=== PATIENT | female | born 1965 | race African-American/Black ===

== ENCOUNTER 2024-10-14 10:48 | Emergency (ER) | payer OTHER, SELFPAY ==
--- NOTE | ~2024-10-14 | CT_ITS ---
CLINICAL HISTORY: FB in esophagus CT soft tissue neck without contrast Comparison: None Findings: The visualized intracranial contents are unremarkable. No prevertebral fluid. Epiglottis is within normal limits. Pharyngeal mucosal space and parapharyngeal fat are normal. Salivary glands are unremarkable. No sialoliths. Prior thyroidectomy. Unremarkable thyroid fossa. There are mild emphysematous changes at the lung apices. No acute fracture or dislocation. IMPRESSION: There is no radiopaque foreign body within the visualized esophagus. This document has been electronically signed by: Meghann Berry MD on 10/14/2024 13:09:22
--- NOTE | 2024-10-14 10:57 | ED.GENADULT ---
HPI - General Adult General Chief complaint: Skin/Abscess/Foreign Body Stated complaint: Object stuck in esophagus Time Seen by Provider: 10/14/24 18:30 Source: patient Mode of arrival: ambulatory Limitations: no limitations History of Present Illness ED Provider: HPI narrative: Patient has been feeling pain in his throat for last 3 days saying that after eating pork sandwich noticed pain in the throat feel foreign body sensations went to urgent care x-ray and noticed radiopaque shadows which in fact are from the thyroid surgery in the 2016 CT scan was done here which is negative for any foreign body in esophagus or pharynx patient claimed that she not able to swallow solids or liquids but able to hold secretions down Related Data Allergies Allergy/AdvReac Type Severity Reaction Status Date / Time acetaminophen Allergy Severe hallucinati Verified 10/14/24 11:00 [From DARVOCET-N] ons cephalexin [From KEFLEX] Allergy Severe RASH Verified 10/14/24 11:00 latex [LATEX] Allergy Severe ANAPHYLAXIS Verified 10/14/24 11:00 meperidine [From DEMEROL] Allergy Severe hallucinati Verified 10/14/24 11:00 ons Penicillins [PCN] Allergy Severe RASH Verified 10/14/24 11:00 propoxyphene Allergy Severe hallucinati Verified 10/14/24 11:00 [From DARVOCET-N] ons avocado [AVOCADO] Allergy Unknown ANAPHYLAXIS Verified 10/14/24 11:00 banana [BANANA] Allergy Unknown ANAPHYLAXIS Verified 10/14/24 11:00 chestnut [CHESTNUTS*] Allergy Unknown anaphylaxis Verified 10/14/24 11:00 hazelnut [HAZELNUT] Allergy Unknown anaphylaxis Verified 10/14/24 11:00 kiwi [KIWI] Allergy Unknown anaphylaxis Verified 10/14/24 11:00 coconut Allergy Anaphylaxis Verified 10/14/24 11:00 walnut Allergy Anaphylaxis Verified 10/14/24 11:00 Review of Systems Review of Systems: Yes all other systems are reviewed and are negative PMFSH Social History Social History Advance Directives: No Advance Directives Information Provided: No Physical Exam ED Vital Signs: Vital Signs - 24 hr 10/14/24 10:58 10/14/24 19:34 10/14/24 22:29 Temperature 98.8 F 98.1 F 98.2 F Pulse Rate 65 69 73 Respiratory Rate 18 16 16 Blood Pressure 135/77 147/86 H 117/64 Pulse Oximetry 100 99 98 Oxygen Delivery Method Room Air Room Air Room Air BMI result Body Mass Index 33.0 Appearance: Alert. Oriented X3. No acute distress. Very anxious Eyes: PERRLA, No Nystagmus ENT: Pharynx normal. Oral Mucosa moist no stridor Neck: Normal inspection. Neck supple. CVS: Normal heart rate and rhythm. Pulses normal. Respiratory: No respiratory distress. Equal air entry bilateral, no wheezing/rales/rhonchi Abdomen: Soft and nontender. Bowel sounds are present, no mass palpable, no CVA tenderness Skin: Skin warm and dry. Normal skin color. Normal skin turgor. Extremities: No lower extremity edema. No calf tenderness Neuro: Oriented X 3. No motor deficit. Course Course Course Narrative: This is a Rapid Medical Examination (RME) performed by Nico Garcia PA-C in triage. Full HPI, ROS, assessment and treatment plan per primary provider in the Main ED. 59 yo female presents to the ER from Urgent Care for evaluation of FB in the esophagus. Reports pain with swallowing since Sunday after she ate a pulled pork sandwich at a restaurant in [place]. She denies any vomiting or inability to swallow but has pain with eating and drinking. Reports pain is in the right side of the throat. 9/10 pain. Arrives with CD of xray done at urgent care that shows a calcified foreign body. Plan: upload imaging, GI consult - TT Dr. Roa at 11:03 AM, awaiting response Reevaluation(s) Reevaluation #1: patient has hives on/off for a month. supposed to be on prednisone but cannot swallow it. few hives noted on back. IM medrol ordered. CT scan done - no esophageal FB, will need to discuss radiopaque findings with them ... Time: 15:13 Medications Administered Discontinued Medications Generic Name Dose Route Start Last Admin Trade Name Freq PRN Reason Stop Dose Admin Lidocaine HCl 15 ml 10/14/24 18:38 10/14/24 19:07 Lidocaine Hcl Viscous 2 % 15 Ml Solution MUCOUS MEM 10/14/24 18:39 15 ml ONCE ONE Administration Lorazepam 2 mg 10/14/24 18:45 10/14/24 19:08 Lorazepam 2 Mg/Ml Vial IM 10/14/24 18:46 2 mg ONCE ONE Administration Methylprednisolone Sodium Succinate 60 mg 10/14/24 15:12 10/14/24 15:32 Methylprednisolone Sod Succ 125 Mg/2 Ml Vial IM 10/14/24 15:13 60 mg ONCE ONE Administration Medical Decision Making Medical Decision Making [facility] Narrative: Patient with foreign body sensation in oropharynx CT scan negative for any foreign body patient felt better after Ativan and lidocaine viscous able to eat and tingling in the ER patient advised to follow up with ENT and college counselor Lab Data Labs: Lab Results 10/14/24 Range/Units 20:43 Influenza Type A (PCR) NEGATIVE (Negative) Influenza Type B (PCR) NEGATIVE (Negative) RSV RNA Qual (PCR) NEGATIVE (Negative) SARS-CoV-2 RNA (RT-PCR) NEGATIVE (Negative) S. pyogenes GrpA MARTIN Negative (Negative) Discharge Plan Discharge Clinical Impression: Feeling of foreign body in throat Patient Disposition: Home, Self-Care Instructions: Foreign Body in Pharynx (ED) Additional Instructions: Will do not see any foreign body in the CT scan of your neck Follow with ENT/GI if he is still continuing to feel foreign body sensation for further management Drink plenty of fluids Referrals: Bar Perez MD [Physician] - Maciel Roldan [Physician] - 3 days Print Language: Indonesian
[2024-10-14 10:58] VITALS: BP 135/77; PULSE 65; RESP 18; TEMP 37.1; O2SAT 100; BMI 33.0
[2024-10-14] MEDS: methylPREDNISolone Sod Succ 125 MG/2 ML VIAL 60 MG IM (15:32)
--- OUTSIDE RECORDS SUMMARY | 2024-10-14 18:35 | XMS_ITS | Encounter Summary ---
Author Organization [facility], Address [address] [place] [address] Phone Care Team Providers Care Awning Installer Name Role Phone Amber Duran NP Primary Care Provider [phone] Reason for Visit * Reason Onset Date Comments Med Refill 02/09/2021 Encounter Details Date Type Department Care Team (Late st Contact Info) Description 02/09/2021 [facility]ill [facility] [address] [place] [address] Didier Montoya [address] [place] [address] Social History Tobacco Use Types Packs/Day Years Used Date Smoking Tobacco: Former Cigarettes Q uit: 09/24/2000 Comments:Smoking History Inf o:Unknown Alcohol Use Standard Drinks/Week Comments No 0 (1 standard drink = 0.6 oz pur e alcohol) Comments Unknown Sex and Gender Information Value Date Recorded Sex Assigned at Not on file Legal Sex Female 4:11 PM EDT Gender Identity Not on file Sexual Orientation Not on file documented as of this encounter Plan of Treatment Not on file documented as of this encounter Visit Diagnoses Not on filedocumented in this encounter Care Teams Awning Installer Relationship Specialty Start Date End Date Amber Duran NP [address] [place], [place] PCP - General Nurse Practitioner 02/06/20 documented as of this encounter
--- OUTSIDE RECORDS SUMMARY | 2024-10-14 18:35 | XMS_ITS | Clinical Summary ---
Author Organization [facility] Address [address] [place] [address] Care Team Providers Care Aircraft Engine Technician Name Role Phone Unavailable Primary Care Provider Unavailabl e Social History Tobacco Use Types Packs/Day Years Used Date Smoking Tobacco: Never Assessed Sex and Gender Information Value Date Recorded Sex Assigned at Not on file Gender Identity Not on file Sexual Orientation Not on file Plan of Treatment Health Maintenance Due Date Last Done Comments Breast Cancer Screening 1965 Cervical Cancer Screening: P ap Smear 01/26/1985 Zoster Vaccines (1 of 2) 01/26/2014 DTaP,Tdap,and Td Vaccines (2 - Td or Tdap) 03/10/2020 03/10/2010 Colorectal Cancer Screening: Colonoscopy 10/23/2023 Depression Screening 10/23/2023 HIV Screening 10/23/2023 Hepatitis C Screening 10/23/2023 Social Influencers of Health Screening 10/23/2023 COVID-19 Vaccine ( - 2023-2 5 season) 2024 Influenza Vaccine (#1) 2024 9, 08/24/2008 RSV Immunization Patients 60 + Years Old (1 - 1-dose 75+ series) 01/26/2039 HIB Vaccines Aged Out No longer eligi ble based on patient's age to complete this topic HPV Vaccines Aged Out No longer eligi ble based on patient's age to complete this topic Hepatitis A Vaccines Aged Out No long er eligible based on patient's age to complete this topic Hepatitis B Vaccines Aged Out No long er eligible based on patient's age to complete this topic IPV Vaccines Aged Out No longer eligi ble based on patient's age to complete this topic MMR Vaccines Aged Out No longer eligi ble based on patient's age to complete this topic Meningococcal ACWY Vaccine Aged Out N o longer eligible based on patient's age to complete this topic Pneumococcal Vaccine: Pediatrics (0 to 5 Years) and At-Risk Patients (6 to 64 Years) Aged Out No longer eligible b ased on patient's age to complete this topic RSV Immunization Patients Under 20 months Aged Out No longer eligible b ased on patient's age to complete this topic Varicella Vaccines Aged Out No longer eligible based on patient's age to complete this topic
--- OUTSIDE RECORDS SUMMARY | 2024-10-14 18:35 | XMS_ITS | Encounter Summary ---
Author Organization [facility], Address [address] [place] [address] Phone Care Team Providers Care Coremaker Machine Name Role Phone Amber Duran NP Primary Care Provider [phone] Reason for Visit * Reason Comments Med Refill Encounter Details Date Type Department Care Team (Late st Contact Info) Description 02/08/2023 Refill [facility] [address] [place] [address] Jc Benson MD [address] [place] [address] Social History Tobacco Use Types Packs/Day Years [...] on filedocumented in this encounter Care Teams Coremaker Machine Relationship Specialty Start Date End Date Amber Duran NP [address] [place] [address] PCP - General Nurse Practitioner 02/06/20 documented as of this encounter
--- OUTSIDE RECORDS SUMMARY | 2024-10-14 18:35 | XMS_ITS | Clinical Summary ---
Author Organization [facility], Address [address] [place] [address] [place] [address] Phone Care Team Providers Care Peripheral Equipment Operator Name Role Phone Duran, Amber TREVOR Primary Care Provider [phone] Allergies Active Allergy Reactions Criticality Noted Date Comments Propoxyphene 02/20/2020 Meperidine 02/20/2020 Cephalexin 02/20/2020 Latex 02/20/2020 Other 02/20/2020 BANANAS, AVOCADO, WALNUT, CHESTNUT, HAZELNUTS, KIWI, COCONUT Penicillins 02/20/2020 Hydrocodone-Acetaminophen 02/20/2020 Medications atorvastatin (LIPITOR) 20 MG tablet Take 20 mg by mouth 1 (one) time each day Active buPROPion SR (WELLBUTRIN SR) 150 MG 12 hr tablet Take 150 mg by mouth 1 (one) time each day Active buPROPion XL (WELLBUTRIN XL) 300 MG 24 hr tablet Take 300 mg by mouth 1 (one) time each day Active doxepin (SINEquan) 75 MG capsule Take 75 mg by mouth every night Active fluticasone (FLONASE) 50 MCG/ACT nasal spray Administer 1 spray into each nostril 1 (one) time each day Active meloxicam (MOBIC) 15 MG tablet Take 15 mg by mouth 1 (one) time each day Active sertraline (ZOLOFT) 100 MG tablet Take 200 mg by mouth 1 (one) time each day Active levothyroxine (SYNTHROID, LEVOTHROID) 75 MCG tablet Take TWO tablets six days of the week and ONE tablet the remaining day Active triamterene-hyd roCHLOROthiazid e (MAXZIDE-25) 37.5-25 MG per tablet Take 1 tablet by mouth 1 (one) time each day Active cetirizine (ZyrTEC) 10 MG tablet Take 20 mg by mouth 1 (one) time each day Active hydroCHLOROthia zide 25 MG tablet Take 1 tablet (25 mg total) by mouth 1 (one) time each day 90 tablet 3 2 Active Active Problems Problem Noted Date Diagnosed Date Stage 3a chronic kidney disease 05/02/2021 Renal calculus 02/23/2020 Pure hypercholesterolemia Impaired fasting glycemia Hypothyroidism Hyperlipidemia Cyst of kidney Immunizations Name Administration Dates Next Due Influenza Split High Dose Preservative Free IM 1 10/25/2007 Tdap 03/10/2010 Family History Medical History Relation Comments Cancer Maternal Grandmother uterine Diabetes Mother Diabetes type II Mother Hypertension Mother Anemia Mother's Brother Breast cancer Mother's Sister Relation Status Comments Father Unknown Maternal Grandmother Mother Alive Mother's Brother Mother's Sister Social History Tobacco Use Types Packs/Day Years [...] Last Done Comments Breast Cancer Screening 1965 Pneumococcal Vaccine: Pediat rics (0 to 5 Years) and At-Risk Patients (6 to 64 Years) (1 of 2 - PCV) 01/26/1970 Colorectal Cancer Screening: Annual FOBT 01/26/2013 Colorectal Cancer Screening: Colonoscopy 01/26/2013 Colorectal Cancer Screening: Sigmoidoscopy 01/26/2013 Influenza Vaccine (#1) 2024 08/24/2008 Hepatitis B Vaccine Aged Out No longe r eligible based on patient's age to complete this topic Insurance MEDICAID [place] Care Teams Peripheral Equipment Operator Relationship Specialty Start Date End Date Amber Duran NP [address] [place] [address] PCP - General Nurse Practitioner 02/06/20
[2024-10-14] MEDS: Lidocaine HCl Viscous 2 % 15 ML SOLUTION MUCOUS MEM (19:07)
[2024-10-14] MEDS: LORazepam 2 MG/ML VIAL IM (19:08)
[2024-10-14 19:34] VITALS: BP 147/86; PULSE 69; RESP 16; TEMP 36.7; O2SAT 99
[2024-10-14 20:58] LABS: IDNOW Serial# 58CA691E; Strep A Nucleic Acid Negative (Negative)
[2024-10-14 21:27] LABS: Influenza A PCR NEGATIVE (Negative); Influenza B PCR NEGATIVE (Negative); Resp Syncy Virus RNA Qual PCR NEGATIVE (Negative); SARS COV2 PCR INHOUSE NEGATIVE (Negative)
[2024-10-14 22:29] VITALS: BP 117/64; PULSE 73; RESP 16; TEMP 36.8; O2SAT 98
== END 2024-10-14 23:08 | disposition home or self-care (01) ==
PROVIDERS: Emergency Provider Internal Medicine; PCP Nurse Practitioner
DX: R09.89 Other specified symptoms and signs involving the circulatory and respiratory systems (principal); R07.0 Pain in throat; M54.2 Cervicalgia; L50.0 Allergic urticaria; Z03.818 Encounter for observation for suspected exposure to other biological agents ruled out
CPT/HCPCS: 0241U; 70490; 87651; 96372; 99283; 99284; J2060; J2919

== ENCOUNTER → 2024-10-14 11:38 | Outpatient (BNV) | payer OTHER, SELFPAY | PROVIDERS: Visit Provider Radiology Diagnostic Radiology | DX: R07.0 Pain in throat (principal) | CPT/HCPCS: 70490 ==

== ENCOUNTER → 2025-02-02 09:15 | Outpatient (BNV) | payer OTHER, SELFPAY | PROVIDERS: Visit Provider Internal Medicine | DX: Z12.31 Encounter for screening mammogram for malignant neoplasm of breast (principal) | CPT/HCPCS: 77063; 77067 ==

== ENCOUNTER 2025-02-02 09:21 | Outpatient (REF) | payer OTHER, SELFPAY ==
--- OUTSIDE RECORDS SUMMARY | 2025-02-02 09:27 | XMS_ITS | Encounter Summary ---
Author Organization [facility], Address [address] [place] [address] Phone Care Team Providers Care Relief Man Name Role Phone Amber Duran NP Primary Care Provider Reason for Visit * Reason Comments Med Refill Encounter Details Date Type Department Care Team (Late st Contact Info) Description 02/08/2023 Refill [facility] [address] [place] [address] Jc Benson MD Social History Tobacco Use Types Packs/Day Years [...] on filedocumented in this encounter Care Teams Relief Man Relationship Specialty Start Date End Date Amber Duran NP [address] [place] [address] PCP - General Nurse Practitioner 02/06/20 documented as of this encounter
--- OUTSIDE RECORDS SUMMARY | 2025-02-02 09:27 | XMS_ITS | Clinical Summary ---
Author Organization [facility], Address [address] [place] [address] [place] [address] Phone Care Team Providers Care Network Operations Technician Name Role Phone Duran, Amber TREVOR Primary Care Provider [phone] Allergies Active Allergy Reactions Criticality Noted Date [...] glycemia Hypothyroidism Hyperlipidemia Cyst of kidney Immunizations Immunization Administration Dates Next Due Influenza Split High [...] Comments Breast Cancer Screening 1965 Pneumococcal Vaccine: 50+ Ye ars (1 of 2 - PCV) 01/26/1983 Colorectal Cancer Screening: Annual FOBT 01/26/2013 Colorectal Cancer Screening: Colonoscopy 01/26/2013 Colorectal Cancer Screening: Sigmoidoscopy 01/26/2013 Influenza Vaccine (Season Ended) 2025 08/24/20 08 Hepatitis B Vaccine Aged Out No longe r eligible based on patient's age to complete this topic Insurance Medicaid [place] Care Teams Network Operations Technician Relationship Specialty Start Date End Date Amber Duran NP [address] [place] [address] PCP - General Nurse Practitioner 02/06/20
--- OUTSIDE RECORDS SUMMARY | 2025-02-02 09:27 | XMS_ITS | Encounter Summary ---
Author Organization [facility], Address [address] [place] [address] Phone Care Team Providers Care Lining Folder Name Role Phone Amber Duran NP Primary Care Provider [phone] Reason for Visit * Reason Onset Date Comments Med Refill 02/09/2021 Encounter Details Date Type Department Care Team (Late st Contact Info) Description 02/09/2021 Refill [facility] [address] [place] [address] Didier Montoya [address] [place] [address] Social History Tobacco Use Types [...] on filedocumented in this encounter Care Teams Lining Folder Relationship Specialty Start Date End Date Amber Duran NP [address], [place] PCP - General Nurse Practitioner 02/06/20 documented as of this encounter
== END 2025-02-02 09:22 | disposition home or self-care (01) ==
LOC: HO.MAMMO 09:21
PROVIDERS: Visit Provider Nurse Practitioner
DX: Z12.31 Encounter for screening mammogram for malignant neoplasm of breast (principal)
CPT/HCPCS: 77063; 77067

== ENCOUNTER 2025-07-21 07:52 | Emergency (ER) | payer OTHER, SELFPAY ==
[2025-07-21 07:54] VITALS: BP 179/102; PULSE 68; RESP 18; TEMP 37.1; O2SAT 99; BMI 29.7
[2025-07-21 08:05] VITALS: BP 167/85; PULSE 67; RESP 19; O2SAT 100
--- NOTE | 2025-07-21 08:11 | ED_ITS ---
HPI - Allergic Reaction General Chief complaint: Allergic Reaction Stated complaint: allergic reaction Time Seen by Provider: 07/21/25 07:57 Source: patient Mode of arrival: ambulatory Limitations: no limitations History of Present Illness HPI narrative: This is 60 years old presented to the emergency department with swelling of the tongue. She states she woke up this morning with a swollen tongue. She has self administer epinephrine 20 minutes prior to the arrival to the emergency department. She states that she has multiple allergy and last night she use a different marijuana preparation. Denies any other systemic symptoms such as fever vomiting MD complaint: other (tongue swelling) Onset (ago): hour(s) (2) Exposure: other Known history of allergy to: possible new cannabinoid preparation Symptoms: other (tongue swelling) Severity: mild Treatment prior to arrival: epinephrine Previous Allergic Reaction History: other (Multiple allergens) Related Data Previous Rx's ?Medication ?Instructions ?Recorded prednisone 20 mg tablet 60 mg (3 x 20 mg) PO DAILY # 12 tabs 07/21/25 Allergies Allergy/AdvReac Type Severity Reaction Status Date / Time acetaminophen (From Allergy Severe hallucinati Verified 07/21/25 07:58 DARVOCET-N) ons cephalexin (From KEFLEX) Allergy Severe RASH Verified 07/21/25 07:58 latex (LATEX) Allergy Severe ANAPHYLAXIS Verified 07/21/25 07:58 meperidine (From DEMEROL) Allergy Severe hallucinati Verified 07/21/25 07:58 ons Penicillins (PCN) Allergy Severe RASH Verified 07/21/25 07:58 propoxyphene (From Allergy Severe hallucinati Verified 07/21/25 07:58 DARVOCET-N) ons avocado (AVOCADO) Allergy Unknown ANAPHYLAXIS Verified 07/21/25 07:58 banana (BANANA) Allergy Unknown ANAPHYLAXIS Verified 07/21/25 07:58 chestnut (CHESTNUTS*) Allergy Unknown anaphylaxis Verified 07/21/25 07:58 hazelnut (HAZELNUT) Allergy Unknown anaphylaxis Verified 07/21/25 07:58 kiwi (KIWI) Allergy Unknown anaphylaxis Verified 10/14/24 11:00 coconut Allergy Anaphylaxis Verified 10/14/24 11:00 walnut Allergy Anaphylaxis Verified 10/14/24 11:00 Review of Systems 2 Constitutional: Constitutional: Reports no additional constitutional complaints ENT: Reports as per HPI Cardiovascular: Cardiovascular: Reports no additional cardiovascular complaints Respiratory: Respiratory: Reports no additional respiratory complaints [facility] Past Medical History Attestation statement: The following information was validated with the patient. [facility] Narrative: Hypertension Social History Social History Smoked in Last 30 Days: No Use of substances other than those prescribed or required for medical reasons: Yes Substance Use Type: Marijuana Advance Directives: No Advance Directives Information Provided: No Patient : No Physical Exam ED Vital Signs: Vital Signs - 24 hr 07/21/25 07:54 07/21/25 08:05 07/21/25 08:50 Temperature 98.8 F Pulse Rate 68 67 58 Respiratory Rate 18 19 18 Blood Pressure 179/102 H 167/85 H Pulse Oximetry 99 100 100 Oxygen Delivery Method Room Air Room Air Room Air 07/21/25 09:21 07/21/25 11:48 Temperature 0 F L Pulse Rate 64 64 Respiratory Rate 14 14 Blood Pressure 140/72 H 140/72 H Pulse Oximetry 98 98 Oxygen Delivery Method Room Air Room Air BMI result Body Mass Index 29.7 Const General: cooperative Nutritional Appearance: average body habitus Orientation/consciousness: patient oriented x3 HENMT Head: Yes normal to inspection Ears: hearing grossly normal bilaterally General nose exam: Normal external nose present Face and sinus: Yes normal facial exam Mouth: Normal oral and palatal mucosa present Teeth and gingiva: other (Swelling of the tongue noted) Neck Neck: Yes normal visual inspection Chest Chest palpation & inspection: normal inspection of the chest Resp Effort & Inspection: normal respiratory effort Auscultation: clear to auscultation bilaterally Cardio Jugular venous distension: no JVD Rate: regular rate GI Inspection: Yes normal to inspection Palpation (GI): Soft to palpation, not firm and nontender Auscultation: normal bowel sounds Skin General skin exam: no rashes or lesions noted and elasticity normal Lesions: no lesions Rashes: no rashes Neuro General: patient oriented x3 Cranial nerves: Yes CN's II-XII intact bilaterally Course Reevaluation(s) Reevaluation #1: Patient was re-examined several times including now much better tongue is down anticipate discharge Time: 11:41 Medications Administered Discontinued Medications Generic Name Dose Route Start Last Admin Trade Name Freq PRN Reason Stop Dose Admin Dexamethasone Sodium Phosphate 10 mg 07/21/25 08:07 07/21/25 08:13 Dexamethasone Sod Phosphate 10 Mg/Ml Vial IVPUSH 07/21/25 08:08 10 mg ONCE ONE Administration Diazepam 2.5 mg 07/21/25 10:15 07/21/25 10:29 Diazepam 10 Mg/2 Ml Cartridge IVPUSH 07/21/25 10:16 2.5 mg STAT STA Administration Diphenhydramine HCl 25 mg 07/21/25 08:08 07/21/25 08:13 Diphenhydramine Hcl 50 Mg/Ml Vial IVPUSH 07/21/25 08:09 25 mg ONCE ONE Administration Diphenhydramine HCl 25 mg 07/21/25 09:17 07/21/25 09:20 Diphenhydramine Hcl 50 Mg/Ml Vial IVPUSH 07/21/25 09:18 25 mg ONCE ONE Administration Famotidine 20 mg 07/21/25 08:08 07/21/25 08:13 Famotidine/Pf 20 Mg/2 Ml Vial IVPUSH 07/21/25 08:09 20 mg ONCE ONE Administration Sodium Chloride 1,000 mls @ 999 mls/hr 07/21/25 08:15 07/21/25 09:23 Ns IVCONT 07/21/25 09:15 Infused .Q1H1M SCOTT Infusion Medical Decision Making Medical Decision Making [facility] Narrative: Patient is here with swelling of the tongue we will administer IV Decadron/Benadryl/Pepcid unclear picture is more consistent with the angioedema 11:42 on re-examination she is doing much better at this point I think she can be discharged home Differential Diagnosis Differential Diagnoses: The differential diagnosis associated with the presentation includes Angioedema/allergic reaction Admission/Observation Consideration of admission/observation: Escalation of care including admission/observation considered Lab Data [facility] Lab Attestation statement: I reviewed the patient's lab results. 07/21/25 08:16 07/21/25 08:16 Labs: Lab Results 07/21/25 Range/Units 08:16 WBC 5.9 (4.8-10.8) X10*3/uL RBC 5.44 (4.20-5.50) X10*6/uL Hgb 14.7 (12.0-16.0) g/dl Hct 45.7 (37.0-47.0) % MCV 84.0 (80.0-98.0) fL MCH 27.0 (27.0-33.0) pg MCHC 32.2 (31.0-35.0) g/dl RDW 14.1 (11.0-16.0) % Plt Count 297 (160-400) X10*3/uL MPV 9.7 (9.4-12.3) fL Immature Gran % (Auto) 0.2 (0.0-0.4) % Neut % (Auto) 31.8 L (45-73) % Lymph % (Auto) 56.0 H (20-40) % [place] % (Auto) 8.2 (2-11) % Eos % (Auto) 3.1 (0-4) % Baso % (Auto) 0.7 (0-2) % Lymph # (Auto) 3.3 (1.2-4.9) X10*3/uL [place] # (Auto) 0.5 (0.1-1.2) X10*3/uL Eos # (Auto) 0.2 (0.0-0.4) X10*3/uL Baso # (Auto) 0.0 (0.0-0.2) X10*3/uL Abs Immat Gran (auto) 0.01 (0.00-0.03) X10*3/uL Absolute Neuts (auto) 1.9 L (2.0-8.3) x10*3/uL Absolute Nucleated RBC 0.000 (0.0-0.012) X10*3/uL Nucleated RBC % (auto) 0.0 (0.0-0.2) /100WBC Sodium 141 (135-145) mmol/L Potassium 3.6 (3.3-5.1) mmol/L Chloride 107 (96-108) mmol/L Carbon Dioxide 25 (22-29) mmol/L Anion Gap 13 (12-20) BUN 14 (9-16) mg/dL Creatinine 1.29 (0.5-1.4) mg/dL Estim Creat Clear Calc 46.4 Estimated GFR 42 Random Glucose 89 (60-115) mg/dL Calcium 9.3 (8.4-10.2) mg/dL Total Bilirubin 0.4 (0.0-1.0) mg/dL AST 23 (5-31) U/L ALT 15 (0-31) U/L Alkaline Phosphatase 73 (39-117) U/L Total Protein 7.0 (6.5-8.0) g/dL Albumin 4.2 (3.5-5.0) g/dL Critical Care Time Critical Care Time Critical Care Time: Yes Total Critical Care Time: 60 Attestation: Angioedema with treated with the IV steroid IV Benadryl IV Pepcid re-examined several times Discharge Plan Discharge Clinical Impression: Angioedema Patient Disposition: Home, Self-Care Instructions: Angioedema (ED) Additional Instructions: Please follow-up with your primary care physician return to the emergency room if you worse any concern Prescriptions: New prednisone 20 mg tablet 60 mg PO DAILY Qty: 12 0RF Referrals: PhysicianJason [Primary Care Provider, Medical] - 07/23/25 Interventions: ED Discharge Assessment Last Done: 07/21/25 11:48 Discharge Date/Time: 07/21/25 11:57 Print Language: Welsh
[2025-07-21 08:19] LABS: MANUAL DIFF FLAG NO
[2025-07-21 08:24] LABS: Hematocrit 45.7 % (37.0-47.0); Hemoglobin 14.7 g/dl (12.0-16.0); Imm Gran Abs Auto 0.01 X10*3/uL (0.00-0.03); Imm Gran Pct Auto 0.2 % (0.0-0.4); Lymphocytes Absolute Auto 3.3 X10*3/uL (1.2-4.9); Mean Corpuscular HGB Conc 32.2 g/dl (31.0-35.0); Mean Corpuscular Hemoglobin 27.0 pg (27.0-33.0); Mean Corpuscular Volume 84.0 fL (80.0-98.0); NRBC Abs Auto 0.000 X10*3/uL (0.0-0.012); NRBC Pct Auto 0.0 /100WBC (0.0-0.2); Platelet Count 297 X10*3/uL (160-400); Red Blood Count 5.44 X10*6/uL (4.20-5.50); White Blood Count 5.9 X10*3/uL (4.8-10.8)
[2025-07-21 08:33] LABS: Alanine Aminotransferase 15 U/L (0-31); Albumin Level 4.2 g/dL (3.5-5.0); Alkaline Phosphatase 73 U/L (39-117); Anion Gap 13 (12-20); Aspartate Amino Transferase 23 U/L (5-31); Blood Urea Nitrogen 14 mg/dL (9-16); Calcium 9.3 mg/dL (8.4-10.2); Carbon Dioxide 25 mmol/L (22-29); Chloride 107 mmol/L (96-108); Creatinine Clr Calc Pharmacy 46.4; Estimated Glomerular Filt Rate 42; Potassium 3.6 mmol/L (3.3-5.1); Sodium 141 mmol/L (135-145); Total Protein 7.0 g/dL (6.5-8.0)
[2025-07-21 08:50] VITALS: PULSE 58; RESP 18; O2SAT 100
--- OUTSIDE RECORDS SUMMARY | 2025-07-21 09:07 | XMS_ITS | Encounter Summary ---
Author Organization [facility] Address [address] [place] [address] Phone Care Team Providers Care Salt Cutter Name Role Phone Rachel Andrews DO Primary Care Provider [phone] Maylin Santamaria NP Primary Care Provider Encounter Details Date Type Department Care Team (Late st Contact Info) Description 11/30/2021 Procedure Pass [facility], [address] [address] Social History Tobacco Use Types Packs/Day Years Used Date Smoking Tobacco: Former Cigarettes Q uit: 2013 Smokeless Tobacco: Never Alcohol Use Standard Drinks/Week Comments No 0 (1 standard drink = 0.6 oz pur e alcohol) Comments No Sex and Gender Information Value Date Recorded Sex Assigned at Not on file Legal Sex Female 6:58 PM EST Gender Identity Not on file Sexual Orientation Not on file documented as of this encounter Plan of Treatment Not on file documented as of this encounter Visit Diagnoses Not on filedocumented in this encounter Care Teams Salt Cutter Relationship Specialty Start Date End Date Rachel Andrews DO [address] [place] [address] [place] [phone] PCP - General Family Medicine 05/09/23 12/16/24 Maylin Santamaria, TREVOR [address] [place] [phone] [email or web address] PCP - General Nurse Practitioner 12/17/24 documented as of this encounter Additional Source Comments The information contained in this document represents components of the legal health record. It is not the complete legal health record.[facility]
--- OUTSIDE RECORDS SUMMARY | 2025-07-21 09:07 | XMS_ITS | Encounter Summary ---
Author Organization [facility] Address [address] [place] [address] Phone Care Team Providers Care Vehicle Window Tinter Name Role Phone Rachel Andrews DO Primary Care Provider Maylin Santamaria DENTAL LABORATORY TECHNOLOGY TEACHER Primary Care Provider Encounter Details Date Type Department Care Team (Late st Contact Info) Description 05/09/2023 Procedure Pass [facility], [facility] Scan - [address] [address] Social History Tobacco Use Types Packs/Day Years Used Date Smoking Tobacco: Former Cigarettes Q uit: 2013 Smokeless Tobacco: Never Alcohol Use Standard Drinks/Week Comments No 0 (1 standard drink = 0.6 oz pur e alcohol) Education Answer Date Recorded Are you interested in more education? Not on jigar e 02/01/2023 Are you concerned about learning? Not on file 02/01/2023 No 02/01/2023 No 02/01/2023 Digital Access Answer Date Recorded No 02/18/2023 No 02/18/2023 Reliable internet access at home? Not on file 02/18/2023 Device with a working camera? Not on file Intimate Partner Violence Answer Date R ecorded Are you denied basic needs s uch as food, clothing, or medical care? No 05/09/2023 In the past 12 months have y ou been in a relationship with a person who hurts, threatens, or tries to control you? No 05/09/2023 Are you denied basic needs s uch as food, clothing, or medical care? No 05/09/2023 In the past 12 months have y ou been in a relationship with a person who hurts, threatens, or tries to control you? No 05/09/2023 Comments No Sex and Gender Information Value Date Recorded Sex Assigned at Not on file Legal Sex Female 6:58 PM EST Gender Identity Not on file Sexual Orientation Not on file documented as of this encounter Plan of Treatment Not on file documented as of this encounter Visit Diagnoses Not on filedocumented in this encounter Care Teams Vehicle Window Tinter Relationship Specialty Start Date End Date Rachel Andrews DO [address] [place] [address] [place] [phone] PCP - General Family Medicine 05/09/23 12/16/24 Maylin Santamaria NP [address] [place] [phone] [email or web address] PCP - General Nurse Practitioner 12/17/24 documented as of this encounter Additional Source Comments The information contained in this document represents components of the legal health record. It is not the complete legal health record.[facility]
--- OUTSIDE RECORDS SUMMARY | 2025-07-21 09:07 | XMS_ITS | Encounter Summary ---
Author Organization [facility], Address [address] [place] [address] Phone Care Team Providers Care Respiratory Therapy Assistant Name Role Phone Amber Duran NP Primary Care Provider [phone] Reason for Visit * Reason Onset Date Comments Med Refill 02/09/2021 Encounter Details Date Type Department Care Team (Late st Contact Info) Description 02/09/2021 Refill [facility] [address] [place] [address] Didier Montoya [address] [place] [address] Social History Tobacco Use Types [...] on filedocumented in this encounter Care Teams Respiratory Therapy Assistant Relationship Specialty Start Date End Date Amber Duran NP [address] [place], [place] PCP - General Nurse Practitioner 02/06/20 documented as of this encounter
--- OUTSIDE RECORDS SUMMARY | 2025-07-21 09:07 | XMS_ITS | Encounter Summary ---
Author Organization [facility] Address [address] [place] [address] Phone Care Team Providers Care Wheel Cutter Name Role Phone Rachel Andrews DO Primary Care Provider [phone] Maylin Santamaria ACADEMIC ADVISOR Primary Care Provider Encounter Details Date Type Department Care Team (Late st Contact Info) Description 12/06/2021 Ancillary Orders [facility],Outside Imaging [address] [place], [place] [id number] System, Provider Not In, [place] [address] Social History Tobacco Use Types Packs/Day Years [...] on file documented as of this encounter Results * Mammogram Outside (No Interpretation) (01/14/2019 12:00 AM EDT) Narrative SYSTEMGENERATED, DOCUMENTATION - 12/06/2021 8:17 AM EDT This study is for PACS storage only and not for interpretation. us Provider Not In System PhD IMG OUTSIDE IMAGING W /OUT INTERPRETATION Final Result documented in this encounter Visit Diagnoses Not on filedocumented in this encounter Care Teams Wheel Cutter Relationship Specialty Start Date End Date Rachel Andrews DO [address] [place] [address] [place] [address] PCP - General Family Medicine 05/09/23 12/16/24 Maylin Santamaria NP [address] [place] [phone] [email or web address] PCP - General Nurse Practitioner 12/17/24 documented as of this encounter Additional Source Comments The information contained in this document represents components of the legal health record. It is not the complete legal health record.[facility]
--- OUTSIDE RECORDS SUMMARY | 2025-07-21 09:07 | XMS_ITS | Encounter Summary ---
Author Organization [facility] Address [address] [place] [address] Phone Care Team Providers Care Aviation Safety Technician Name Role Phone Rachel Andresw DO Primary Care Provider Maylin Santamaria NP Primary Care Provider Encounter Details Date Type Department Care Team (Late st Contact Info) Description 11/22/2020 Procedure Pass [facility] Endoscopy Admitting Dept Virtual Department [address] [place] [address] Social History Tobacco Use Types Packs/Day Years [...] on filedocumented in this encounter Care Teams Aviation Safety Technician Relationship Specialty Start Date End Date Rachel Andrews DO [address] [place] [address] [place] [phone] PCP - General Family Medicine 05/09/23 12/16/24 Maylin Santamaria, TREVOR [address] [place] [phone] [email or web address] PCP - General Nurse Practitioner 12/17/24 documented as of this encounter Additional Source Comments The information contained in this document represents components of the legal health record. It is not the complete legal health record.[facility]
--- OUTSIDE RECORDS SUMMARY | 2025-07-21 09:07 | XMS_ITS | Encounter Summary ---
Author Organization [facility] Address [address] [place] [address] Phone Care Team Providers Care Bundle Sorter Name Role Phone Rachel Andrews DO Primary Care Provider Maylin Santamaria ENTHONE SOLDER STRIPPER Primary Care Provider Encounter Details Date Type Department Care Team (Late st Contact Info) Description 12/06/2021 Ancillary Orders [facility],Outside Imaging [address] [place], [place] [id number] System, Provider Not In, [place] [address] Social History Tobacco Use Types Packs/Day Years [...] encounter Results * Mammogram Outside (No Interpretation) (04/03/2016 12:00 AM EDT) Narrative SYSTEMGENERATED, DOCUMENTATION - 12/06/2021 8:15 AM EDT This study is for PACS storage only and not for interpretation. us Provider Not In System PhD IMG OUTSIDE IMAGING W /OUT INTERPRETATION Final Result documented in this encounter Visit Diagnoses Not on filedocumented in this encounter Care Teams Bundle Sorter Relationship Specialty Start Date End Date Rachel Andrews DO [address] [place] [address] [place] [address] PCP - General Family Medicine 05/09/23 12/16/24 Maylin Santamaria NP [address] [place] [phone] [email or web address] PCP - General Nurse Practitioner 12/17/24 documented as of this encounter Additional Source Comments The information contained in this document represents components of the legal health record. It is not the complete legal health record.[facility]
--- OUTSIDE RECORDS SUMMARY | 2025-07-21 09:07 | XMS_ITS | Clinical Summary ---
Author Organization [facility], Address [address] [place] [address] [place] [address] Phone Care Team Providers Care Warp Changer Name Role Phone Duran, Amber TREVOR Primary Care Provider [phone] Allergies Active Allergy Reactions Criticality Noted Date [...] Cancer Screening: Sigmoidoscopy 01/26/2013 Influenza Vaccine (#1) 2025 08/24/2008 Hepatitis B Vaccine Aged Out No longe r eligible based on patient's age to complete this topic Insurance Medicaid [place] Care Teams Warp Changer Relationship Specialty Start Date End Date Amber Duran NP [address] [place] [address] PCP - General Nurse Practitioner 02/06/20
--- OUTSIDE RECORDS SUMMARY | 2025-07-21 09:07 | XMS_ITS | Clinical Summary ---
Author Organization [facility] Address [address] [place] [address] Phone Care Team Providers Care Vat Tender Name Role Phone Physician, Pcp Unknown Primary Care Provider Erum vailable Allergies Active Allergy Reactions Criticality Noted Date Comments Banana Anaphylaxis High 10/24/2022 Cephalexin Rash Low 12/02/2019 Coconut Anaphylaxis High 10/24/2022 Hydrocodone Hallucinations High 12/02/2019 Latex Anaphylaxis High 12/02/2019 Meperidine GI intolerance Low 12/02/2019 Penicillins Rash Low 12/02/2019 [place] Anaphylaxis High 10/24/2022 Medications No known medications Encounters Date Type Department Care Team Description 06/15/2025 1:16 PM EDT - 06/15/2025 6:41 PM EDT Emergency [facility] Emergency [address] [place] [address] Sheri Man MD Allergic reaction, initial encounter (Primary Dx); Angioedema, initial encounter Discharge Disposition: Home or Self Care from Last 3 Months Surgical History Surgery Date Site/Laterality Comments TOTAL KNEE ARTHROPLASTY PARTIAL HYSTERECTOMY Medical History Medical History Date Comments HTN (hypertension) Social History Tobacco Use Types Packs/Day Years Used Date Smoking Tobacco: Former Cigarettes Smokeless Tobacco: Current Tobacco Cessation:Ready to Q uit: Not Asked; Counseling Given: Not Answered Alcohol Use Standard Drinks/Week Comments Never 0 (1 standard drink = 0.6 oz pur e alcohol) Comments Unknown Sex and Gender Information Value Date Recorded Sex Assigned at Not on file Legal Sex Female 7:11 AM EST Gender Identity Not on file Sexual Orientation Not on file Obstetrics History Last Filed Vital Signs Vital Sign Reading Time Taken Comments Blood Pressure 136/72 06/15/2025 6:14 PM EDT Pulse 64 06/15/2025 6:14 PM EDT Temperature 36.9 C (98.4 F) 06/15/2025 6:14 PM EDT Respiratory Rate 18 06/15/2025 6:14 PM EDT Oxygen Saturation 100% 06/15/2025 6:14 PM EDT Inhaled Oxygen Concentration - - Weight 78.9 kg (174 lb) 06/15/2025 1:07 PM EDT Height 162.6 cm (5' 4 ) 06/15/2025 1:07 PM EDT Body Mass Index 29.87 06/15/2025 1:07 PM EDT Plan of Treatment Health Maintenance Due Date Last Done Comments Colorectal Cancer Screening: Colonoscopy 1965 Cervical Cancer Screening: Pap Smear 01/26/1985 RSV Immunization Adult Patients (1 - Risk 50-74 years 1-dose series) 01/26/2014 Zoster Vaccines (1 of 2) 01/26/2014 Cholesterol Screening (Lipid Panel) 10/23/2023 HIV Screening 10/23/2023 Hepatitis C Screening 10/23/2023 Social Influencers of Health Screening 10/23/2023 Breast Cancer Screening 02/03/2024 02/02/2022 Depression Screening 09/24/2024 Influenza Vaccine (#1) 2025 , 07/10/2023, 06/28/2022, Additional history exists Hypertension/CHF/CAD Annual BMP Blood Test 10/16/2025 10/16/2024 DTaP,Tdap,and Td Vaccines (3 - Td or Tdap) 05/24/2030 05/24/2020, 03/10/2010 Pneumococcal Vaccine: 50+ Years Completed 07/13/2022, 03/22/2017 COVID-19 Vaccine Completed 07/15/2024, 11/2022, 07/13/2022, Additional history exists HIB Vaccines Aged Out No longer eligi [...] patient's age to complete this topic Meningococcal B Vaccine Aged Out No l onger eligible based on patient's age to complete this topic RSV Immunization Patients Under 20 months Aged Out No longer eligible based on patient's age to complete this topic Varicella Vaccines Aged Out No longer eligible based on patient's age to complete this topic Care Teams Vat Tender Relationship Specialty Start Date End Date Physician, Pcp Unknown PCP - General 06/15/25
--- OUTSIDE RECORDS SUMMARY | 2025-07-21 09:07 | XMS_ITS | Encounter Summary ---
Author Organization [facility] Address [address] [place] [address] Phone Care Team Providers Care Grease Refiner Operator Name Role Phone Rachel Andrews DO Primary Care Provider [phone] Maylin Santamaria HIDES AND SKINS COLORER Primary Care Provider Encounter Details Date Type Department Care Team (Latest Contact Info) Description 11/30/2021 Transcribe Orders Virtual Department [address] [place] [address] Ami Goncalves PA [address] [place] [address] [email or web address] Breast screening (Primary Dx) Social History Tobacco Use Types Packs/Day Years [...] documented as of this encounter Results * BI MAMMOGRAM SCREENING WITH TOMOSYNTHESIS WITH CAD (BILATERAL) (02/02/2022 3:28 PM EDT) Anatomical Region Laterality Modality Breast Left, Breast Right, Breast Bilateral Bila teral Mammography 02/02/2022 4:26 PM EDT Impressions 02/02/2022 4:28 PM EDT No findings suspicious for malignancy are identified. In the absence of a worrisome palpable abnormality, annual screening mammography is recommended. BI-RADS CATEGORY: 1 - Negative. DENSITY: The breast tissue is almost entirely fat. Narrative 02/02/2022 4:28 PM EDT COMPARISON: Bilateral 3-D tomosynthesis with 2-D reconstructions in the CC and MLO projection plus additional cleavage view on the right were obtained. Computer-aided detection system was utilized. No new mass, asymmetry, architectural distortion or suspicious calcifications have become apparent on either side. Procedure Note Bernabe Wetzel MD - 02/02/2022 COMPARISON: Bilateral 3-D tomosynthesis with 2-D reconstructions in the CC and MLOprojection plus additional cleavage view on the right were obtained. Computer-aided detection system was utilized. No new mass, asymmetry, architectural distortion or suspiciouscalcifications have become apparent on either side. IMPRESSION: No findings suspicious for malignancy are identified. In the absence of aworrisome palpable abnormality, annual screening mammography isrecommended. BI-RADS CATEGORY: 1 - Negative. DENSITY: The breast tissue is almost entirely fat. Ami MURPHY IMG MG EXAMS Final Result documented in this encounter Visit Diagnoses Diagnosis Breast screening- Primary Breast screening, unspecified Breast screening Breast screening, unspecified documented in this encounter Care Teams Grease Refiner Operator Relationship Specialty Start Date End Date Rachel Andrews DO [address] [place] [address] [place] [phone] PCP - General Family Medicine 05/09/23 12/16/24 Maylin Santamaria NP [address] [place] [phone] [email or web address] PCP - General Nurse Practitioner 12/17/24 documented as of this encounter Additional Source Comments The information contained in this document represents components of the legal health record. It is not the complete legal health record.[facility]
--- OUTSIDE RECORDS SUMMARY | 2025-07-21 09:07 | XMS_ITS | Encounter Summary ---
Author Organization [facility] Address [address] [place] [address] Phone Care Team Providers Care Animal Bounty Hunter Name Role Phone Rachel Andrews DO Primary Care Provider Maylin Santamaria [employer] INTERNS[employer]IP Primary Care Provider Encounter Details Date Type Department Care Team (Late st Contact Info) Description 12/06/2021 Ancillary Orders [facility],Outside Imaging [address] [place], [place] [id number] System, Provider Not In, [place] [address] Social History Tobacco Use Types Packs/Day Years [...] encounter Results * Mammogram Outside (No Interpretation) (06/29/2017 12:00 AM EDT) Narrative SYSTEMGENERATED, DOCUMENTATION - 12/06/2021 8:14 AM EDT This study is for PACS storage only and not for interpretation. us Provider Not In System PhD IMG OUTSIDE IMAGING W /OUT INTERPRETATION Final Result documented in this encounter Visit Diagnoses Not on filedocumented in this encounter Care Teams Animal Bounty Hunter Relationship Specialty Start Date End Date Rachel Andrews DO [address] [place] [address] [place] [address] PCP - General Family Medicine 05/09/23 12/16/24 Maylin Santamaria NP [address] [place] [phone] [email or web address] PCP - General Nurse Practitioner 12/17/24 documented as of this encounter Additional Source Comments The information contained in this document represents components of the legal health record. It is not the complete legal health record.[facility]
--- OUTSIDE RECORDS SUMMARY | 2025-07-21 09:07 | XMS_ITS | Encounter Summary ---
Author Organization [facility], Address [address] [place] [address] Phone Care Team Providers Care Nursing Surgical Services Director Name Role Phone Amber Duran NP Primary Care Provider [phone] Reason for Visit * Reason Comments Med Refill Encounter Details Date Type Department Care Team (Late st Contact Info) Description 02/08/2023 Refill [facility] [address] [place] [address] Jc Benson MD Social History Tobacco Use [...] on filedocumented in this encounter Care Teams Nursing Surgical Services Director Relationship Specialty Start Date End Date Amber Duran NP [address] [place] [address] PCP - General Nurse Practitioner 02/06/20 documented as of this encounter
--- OUTSIDE RECORDS SUMMARY | 2025-07-21 09:07 | XMS_ITS | Encounter Summary ---
Author Organization [facility] Address [address] [place] [address] Phone Care Team Providers Care Boiler Maker Name Role Phone Rachel Andrews DO Primary Care Provider Maylin Santamaria GRANITE SANDBLASTER APPRENTICE Primary Care Provider Encounter Details Date Type Department Care Team (Late st Contact Info) Description 12/06/2021 Ancillary Orders [facility],Outside Imaging [address] [place], [place] [id number] System, Provider Not In, [place] [address] Social History Tobacco Use Types Packs/Day Years [...] encounter Results * Mammogram Outside (No Interpretation) (12/07/2014 12:00 AM EDT) Narrative SYSTEMGENERATED, DOCUMENTATION - 12/06/2021 8:16 AM EDT This study is for PACS storage only and not for interpretation. us Provider Not In System PhD IMG OUTSIDE IMAGING W /OUT INTERPRETATION Final Result documented in this encounter Visit Diagnoses Not on filedocumented in this encounter Care Teams Boiler Maker Relationship Specialty Start Date End Date Rachel Andrews DO [address] [place] [address] [place] [phone] PCP - General Family Medicine 05/09/23 12/16/24 Maylin Santamaria NP [address] [place] [phone] [email or web address] PCP - General Nurse Practitioner 12/17/24 documented as of this encounter Additional Source Comments The information contained in this document represents components of the legal health record. It is not the complete legal health record.[facility]
--- OUTSIDE RECORDS SUMMARY | 2025-07-21 09:08 | XMS_ITS | Encounter Summary ---
Author Organization [facility] Address [address] [place] [address] Phone Care Team Providers Care Paint Process Engineer Name Role Phone Maylin Santamaria HIGH SCHOOL GUIDANCE COUNSELOR Primary Care Provider Encounter Details Date Type Department Care Team (Late st Contact Info) Description 12/17/2024 Procedure Pass [facility] Endoscopy Admitting Dept Virtual Department [address] [place] [address] Social History Tobacco Use Types Packs/Day Years Used Date Smoking Tobacco: Former Cigarettes Q uit: 2013 Smokeless Tobacco: Never Comments:Vape nicotine Alcohol Use Standard Drinks/Week Comments No 0 [...] as food, clothing, or medical care? No 12/17/2024 In the past 12 months have y ou been in a relationship with a person who hurts, threatens, or tries to control you? No 12/17/2024 Are you denied basic needs s uch as food, clothing, or medical care? No 12/17/2024 In the past 12 months have y ou been in a relationship with a person who hurts, threatens, or tries to control you? No 12/17/2024 Comments No Sex and Gender Information Value Date Recorded Sex Assigned at Not on file Legal Sex Female 6:58 PM EST Gender Identity Not on file Sexual Orientation Not on file documented as of this encounter Plan of Treatment Not on file documented as of this encounter Visit Diagnoses Not on filedocumented in this encounter Care Teams Paint Process Engineer Relationship Specialty Start Date End Date Maylin Santamaria NP [address] [place] [phone] [email or web address] PCP - General Nurse Practitioner 12/17/24 documented as of this encounter Additional Source Comments The information contained in this document represents components of the legal health record. It is not the complete legal health record.[facility]
--- OUTSIDE RECORDS SUMMARY | 2025-07-21 09:08 | XMS_ITS | Clinical Summary ---
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 Name Role Phone Maylin Santamaria SAFETY AIDE Primary Care Provider Allergies Active Allergy Reactions Criticality Noted Date Comments Meperidine (Pf) Nausea and/or Vomiting 08/20/2017 Cephalexin Rash Low 08/20/2017 Latex, Natural Rubber Anaphylaxis High 08/20/2017 Levothyroxine 05/29/2023 Weight gain Other Throat Tightness Medium 02/20/2020 BANANAS, AVOCADO, WALNUT, CHESTNUT, HAZELNUTS, KIWI, COCONUT Penicillins Erythema Multiforme 08/20/2017 Propoxyphene 02/20/2020 Hydrocodone-Acetamino phen Rash Low 08/20/2017 And hallucinations Medications atorvastatin (LIPITOR) 20 MG tablet 11/10/2020 Active fluticasone propionate (FLONASE) 50 mcg/actuation nasal spray 1 spray by Nasal route. Active hydroCHLOROthia zide (HYDRODIURIL) 25 MG tablet Take 25 mg by mouth daily. 09/21/2020 Active levothyroxine (SYNTHROID, LEVOTHROID) 88 MCG tablet 88 mcg. 125 mg 11/09/2020 Active XOLAIR 150 mg injection 10/30/2020 Active sertraline (ZOLOFT) 100 MG tablet TAKE 2 TABLETS BY MOUTH EVERY DAY AT BEDTIME 09/07/2020 Active albuterol 90 mcg/actuation inhaler 10/26/2020 Active buPROPion (WELLBUTRIN SR) 150 MG SR 12 hr tablet Take 150 mg by mouth. Active buPROPion (WELLBUTRIN XL) 300 MG ER 24 hr tablet Take 300 mg by mouth. Active traZODone (DESYREL) 50 MG tablet Take 200 mg by mouth. 09/21/2020 Active melatonin 5 mg Tab Take 10 mg by mouth nightly at bedtime. Active cyanocobalamin, vitamin B-12, 250 MCG tablet Take 500 mcg by mouth daily. Active multivitamin-mi nerals-lutein (CENTRUM SILVER) Tab Take 1 tablet by mouth daily. Active levocetirizine (XYZAL) 5 MG tablet Take 10 mg by mouth 3 (three) times a day. Active AIRSUPRA 90-80 mcg/actuation inhaler Inhale 2 puffs into the lungs every 4 (four) hours as needed. 10/23/2024 Active EPINEPHrine 0.3 mg/0.3 mL auto-injector Inject 0.3 mg into the muscle once as needed. 10/05/2024 Active hydrOXYzine (ATARAX) 25 MG tablet Take 25 mg by mouth every 4 (four) hours as needed. 10/05/2024 Active omeprazole (PRILOSEC) 20 MG capsule Take 1 capsule by mouth every morning. 10/20/2024 Active SALINE NASAL 0.65 % nasal spray 1 spray by Nasal route as needed. 10/29/2024 Active topiramate (TOPAMAX) 25 MG tablet Take 1 tablet by mouth 2 (two) times a day. 09/14/2024 Active traMADoL (ULTRAM) 50 mg tablet Take 50 mg by mouth. 11/26/2024 Active acetaminophen (TYLENOL) 500 MG tablet Take 500 mg by mouth every 6 (six) hours as needed for pain (specific location in comments). Active Active Problems Problem Noted Date Diagnosed Date Hypertension 12/16/2024 Hyperlipidemia 12/16/2024 Asthma 12/16/2024 Depression 12/16/2024 Chronic renal insufficiency 12/16/2024 Dysphagia 12/16/2024 Hypothyroidism 12/16/2024 Social History Tobacco Use Types Packs/Day Years Used Date Smoking Tobacco: Former Cigarettes Q uit: 2013 Smokeless Tobacco: Never Tobacco Cessation:Counseling Given: Not Answered Comments:Vape nicotine Alcohol Use Standard Drinks/Week Comments [...] on file Sexual Orientation Not on file Last Filed Vital Signs Vital Sign Reading Time Taken Comments Blood Pressure 91/69 12/17/2024 12:03 PM EDT Pulse 61 12/17/2024 12:03 PM EDT Temperature 36 C (96.8 F) 12/17/2024 11:51 AM EDT Respiratory Rate 17 12/17/2024 12:03 PM EDT Oxygen Saturation 98% 12/17/2024 12:03 PM EDT Inhaled Oxygen Concentration - - Weight 86.2 kg (190 lb) 12/08/2024 12:19 PM EDT Height 162.6 cm (5' 4 ) 05/09/2023 11:47 AM EDT Body Mass Index 32.61 05/09/2023 11:47 AM EDT Plan of Treatment Health Maintenance Due Date Last Done Comments TSH LEVEL 1965 DEPRESSION SCREENING 1976 SMOKING Hx and SMOKELESS TOBACCO SCREENING 01/26/1977 HEPATITIS C SCREENING 01/26/1982 HIV ONE-TIME SCREENING (18-65 YEARS) 01/26/1982 COLOGUARD 01/26/2009 FIT TEST 01/26/2009 FOBT 01/26/2009 SIGMOIDOSCOPY 01/26/2009 VIRTUAL COLONOSCOPY 01/26/2009 RSV VACCINE (1 - Risk 50-74 years 1-dose series) 01/26/2014 ZOSTER VACCINES (1 of 2) 01/26/2014 LIPID PANEL 07/08/2023 07/08/2018, 12/16/2010 BLOOD PRESSURE 11/27/2023 05/29/2023 MAMMOGRAM 02/03/2024 02/02/2022, /11/2018, 06/29/2017, Additional history exists INFLUENZA VACCINE (#1) 2025 , 07/10/2023, 06/28/2022, Additional history exists COVID-19 VACCINE ( season) 2025 07/15/2024, 07/27/2023, 07/13/2022, Additional history exists POTASSIUM LEVEL 10/16/2025 10/16/2024, 05/09/2023 PAP SMEAR 05/29/2026 05/29/2023, 02/22, 03/18/2010 SCREENING FOR DIABETES 10/16/2027 10/16/2024, 2018 Adult Td,Tdap Booster 05/24/2030 05/24/2020, 010 COLONOSCOPY 11/22/2030 11/22/2020 COLORECTAL CANCER SCREENING 11/22/2030 PNEUMOCOCCAL VACCINES (50+ years) Completed 07/13/2022, 03/22/2017 HEPATITIS A VACCINES Aged Out No long er eligible based on patient's age to complete this topic HIB VACCINES Aged Out No longer eligi ble based on patient's age to complete this topic MENINGOCOCCAL VACCINES (ACWY) Aged Out No longer eligible based on patient's age to complete this topic MENINGOCOCCAL VACCINES (B) Aged Out N o longer eligible based on patient's age to complete this topic Medical Devices Implanted Type Area Training And Development Head Device Identifier Shelf Expiration Date Model / Serial / Lot Prosthetic Joint Prosthetic Joint Right: Knee Procedures Procedure Name Priority Date/Time Associated Diagnosis Comments COMPREHENSIVE METABOLIC PANEL Routine 10/16/2024 1:20 PM EST Screening for unspecified condition PAP TEST Routine 05/29/2023 12:00 AM EDT BI MAMMOGRAM SCREENING WITH TOMOSYNTHESIS WITH CAD (BILATERAL) Routine 02/02/2022 3:28 PM EDT Breast screening ENDOSCOPY, COLON 11/22/2020 9:52 AM EST OUTSIDE LDL Routine 12/16/2010 from Last 3 Months or Most Recently Relevant to Health Maintenance Results * (ABNORMAL) Comprehensive metabolic panel (10/16/2024 1:20 PM EST) SODIUM 137 133 - 146 mmol/L [facility] POTASSIUM 3.9 3.3 - 5.1 mmol/L [facility] CHLORIDE 100 96 - 108 mmol/L [facility] CO2 25 21 - 35 mmol/L [facility] BUN 21(H) 6 - 19 mg/dL [facility] CREATININE 1.40 0.5 - 1.5 mg/dL [facility] GLUCOSE 74 70 - 99 mg/dL [facility] ALBUMIN 3.7(L) 3.9 - 4.8 g/dL [facility] TOTAL PROTEIN 7.2 6.5 - 8.0 g/dL [facility] CALCIUM 9.6 8.4 - 10.3 mg/dL [facility] ALKALINE PHOSPHATASE 87 39 - 117 U/L [facility] TOTAL BILIRUBIN 0.5 0.0 - 1.2 mg/dL [facility] AST 18 0 - 37 U/L [facility] ALT 15 0 - 40 U/L [facility] GLOBULIN 3.5 1 - 4.8 g/dL [facility] EGFR 43(L) >59 mL/min/1.7 3m2 [facility] Comment:Estimated glomerular filtration rate calculated using the CKD-EPI refit equation. ANION GAP 16 10 - 20 mmol/L [facility] Blood 10/16/2024 1:20 PM EST 10/16/2024 1:26 PM EST Jewel Allen LAB BLOOD ORDERABLES Final R esult [address] [address] * Pap Test (05/29/2023 12:00 AM EDT) 05/29/2023 05/30/2023 8:5 3 AM EDT Narrative SEE NARRATIVE - 06/04/2023 4:07 PM EDT [address] [address] Pneumatic Jacketer: Essence Mart MD LINING CLEANER Cytology Report FINAL DIAGNOSIS A. PAP SMEAR (SUREPATH) CE: SPECIMEN ADEQUACY: Satisfactory for evaluation; transformation zone present. INTERPRETATION: NEGATIVE FOR INTRAEPITHELIAL LESION OR MALIGNANCY. DIAGNOSIS: Atrophy. Electronically Signed Out By: OLIVA Blunt(ASCP) OLIVA Vernon(ASCP) The Pap test is a screening test primarily for squamous cancers and precursors and has associated false-negative and false-positive results. New technologies such as liquid-based preparations may decrease but will not eliminate all false-negative results. Regular sampling and follow-up of unexplained clinical signs and symptoms are recommended to minimize false negative results. PROCEDURES/ADDENDA HPV Testing (Requested) Ordered Date: 05/30/2023 A. PAP SMEAR (SUREPATH) CE: Human Papilloma Virus Test NEGATIVE for high-risk Human Papilloma Virus types 16, 18, 45 and the Other high risk probe set (Includes 31, 33, 35, 39, 51, 52, 56, 58, 59, 66, 68) Note: Testing performed by [employer] Onclarity HR-HPV analysis. Clinical correlation is advised. This HPV test was performed at [facility], [address] [place] [address]. This test has been FDA approved for SurePath cervical cytology specimens. The accuracy and precision of this test for all other specimen sources has been verified in the Cytopathology Laboratory of the [facility] and has not been cleared or approved by the U.S. Food and Drug Administration. Clinical correlation is advised. CLINICAL HISTORY Date of Last Menstrual Period: Not Provided Menstrual History: Post Menopausal Bleeding, PM Other Clinical Conditions: Screening Pap SPECIMEN SOURCE A: PAP SMEAR (SUREPATH) CE Patient Name: RADAMES RICHEY : 1965 (Age: 58) Sex: F Institution: [facility] Location: [facility] Date of Collection: 05/29/2023 Date of Reported: 06/04/2023 16:07 Results to: Travis Toro MD, BS us Travis Toro MD CYTOLOGY ORDERABLES Final Res ult SEE NARRATIVE * BI MAMMOGRAM SCREENING WITH TOMOSYNTHESIS WITH [...] Ami MURPHY IMG MG EXAMS Final Result * ENDOSCOPY, COLON (11/22/2020 9:52 AM EST) Narrative Transcriptions So Haq MD - 11/22/2020 9:52 AM EST Patient Name: Radames Martinscer Attending MD:: SO HAQ MD Procedure Date: 11/22/2020 9:52 AM Date of : 1965 Age: 55 Admit Type: Outpatient Gender: Female Room: [place] [address] Referring MD: AJAY DURAN MD Exam Type: Colonoscopy Indications: Screening for colorectal malignant neoplasm, This is the patient's first colonoscopy Medications: Monitored Anesthesia Care Procedure: Informed consent was obtained from the patient after discussion of the indications, limitations, alternatives, benefits, and risks of the procedure. Risks specifically discussed include but are not limited to medication reactions, missed lesions, bleeding, perforation, or the need for emergentsurgery. Throughout the procedure, the patient's bloodpressure, pulse, end-tidal CO2, and oxygen saturations were monitored continuously. The Olympus adult variable colonoscope [id number] #4was introduced through the anus and advanced to the terminal ileum, with identification of theappendiceal orifice and IC valve. The colonoscopy was performed without difficulty. The patient tolerated theprocedure well. The quality of the bowel preparation was excellent. Complications: No immediate complications. Estimated blood loss:None. Findings: The terminal ileum appeared normal. Examination of the right colon was repeated in retroflexion and again in NBI. Retroflexion was also performed in the rectum. A 3 mm polyp was found in the ascending colon. The polyp was sessile. The polyp was removed with a cold snare. Resection and retrieval were complete. A 9 mm polyp was found in the ascending colon. The polyp was sessile. The polyp was removed with a cold snare. Resection and retrieval were complete. Internal hemorrhoids were found during retroflexion. The hemorrhoids were small. The exam was otherwise without abnormality. Impression: - The examined portion of the ileum was normal. - One 3 mm polyp in the ascending colon, removedwith a cold snare. Resected and retrieved. - One 9 mm polyp in the ascending colon, removedwith a cold snare. Resected and retrieved. - Internal hemorrhoids. - The examination was otherwise normal. Recommendation: - Patient has a contact number available for emergencies. The signs and symptoms of potential delayed complications were discussed with thepatient. Return to normal activities tomorrow. Writtendischarge instructions were provided to the patient. - Await pathology results. - Repeat colonoscopy in 7 years for surveillance. So Haq SO HAQ MD 11/22/2020 10:57:23 AM This report has been signed electronically. Number of Addenda: 0 Note Initiated On: 11/22/2020 9:52 AM Procedure Code(s): --- Professional --- 22017, Colonoscopy, flexible; with removal of tumor(s), polyp(s), or other lesion(s) by snare technique --- Technical --- 57266, Colonoscopy, flexible; with removal of tumor(s), polyp(s), or other lesion(s) by snare technique CPT copyright 2018 [employer]. All rights reserved. The codes documented in this report are preliminary and upon glass lathe operator reviewmay be revised to meet current compliance requirements. 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 It is not the complete legal health record.[facility]
[2025-07-21 09:21] VITALS: BP 140/72; PULSE 64; RESP 14; O2SAT 98
[2025-07-21] MEDS: diazePAM 10 MG/2 ML CARTRIDGE 2.5 MG IVPUSH (10:29)
--- NOTE | 2025-07-21 11:26 | PC.NURSE ---
Dr. Milton at bedside for re-eval
[2025-07-21 11:48] VITALS: BP 140/72; PULSE 64; RESP 14; TEMP -17.7; TEMP 0; O2SAT 98
== END 2025-07-21 11:57 | disposition home or self-care (01) ==
PROVIDERS: Emergency Provider Emergency Medicine
DX: T78.3XXA Angioneurotic edema, initial encounter (principal); X58.XXXA Exposure to other specified factors, initial encounter; Z79.899 Other long term (current) drug therapy
CPT/HCPCS: 36415; 80053; 85025; 96361; 96372; 96374; 96375; 96376; 99284; 99285; J1100; J1200; J1308; J3360